=== PATIENT | male | born 1965 | race Caucasian/White ===

== ENCOUNTER → 2022-01-28 | Outpatient (CLI) | payer BC, MEDICAID ==
[~2022-01-28] VITALS: Ht 175.3 cm; Wt 66.5 kg
[~2022-01-28] MED LIST: CLOR15TA PO; CPH500CIP PO; CYAN-23 PO; CYAN100021 PO; MULT-1019 PO; MULT-1136 PO; OMEG100032 PO; OMG1KC PO; SERT50TA PO
== END | disposition home or self-care (01) ==
LOC: PREOP 06:21
PROVIDERS: ATTEND Internal Medicine
DX: Z01.818 Encounter for other preprocedural examination (principal)

== ENCOUNTER 2022-01-30 07:30 | Day surgery (SDC) | payer BC, MEDICAID ==
--- NOTE | 2022-01-28 08:08 | HISTORY AND PHYSICAL ---
DATE OF SERVICE: COLONOSCOPY HISTORY AND PHYSICAL DATE OF ADMISSION: 01/30/2022 HISTORY OF PRESENT ILLNESS: The patient is a 56-year-old white male seen for followup of severe osteoarthritis of the right hip for which he underwent total hip replacement in August of this year as well as a past history of depression and alcohol use disorder with generalized anxiety. He has been feeling well, very pleased with the results of his hip replacement. Leg lengths are equal again. His back pain has resolved. It has been over 9 years since his last drink. His mood has been good. He voiced no complaints. PHYSICAL EXAMINATION: GENERAL: Reveals a white male, appeared to be in no acute distress. VITAL SIGNS: Weight 146.4 pounds, blood pressure 118/82. CHEST: Clear. CARDIOVASCULAR: Reveals a regular rate and rhythm without murmur, S3 or S4. ABDOMEN: Soft, supple without mass, organomegaly or tenderness. EXTREMITIES: Gait is normal. ASSESSMENT AND PLAN: 1. Status post right total hip replacement, doing well, asymptomatic with resolution of back pain. We will see him back in 6 months with a screening chemistry panel, lipid panel, and PSA. 2. Discussed rationale for screening colonoscopy, which will be set up for next Wednesday. Prep instructions with [employer] were given and questions were answered. He is deemed to be of average risk as he is not aware of any family history for colon cancer or polyps. Job ID: [id number] DocumentID: [id number] Dictated Date: 01/22/2022 15:11:09 Budget Controller Date: 01/22/2022 15:31:34 Dictated By: KENDAL MCCULLOUGH MD
[~2022-01-30] VITALS: Ht 175.3 cm; Wt 66.5 kg
[~2022-01-30 07:30] MED LIST changes: +LACTATED RINGERS 1,000 ML IV STA
[2022-01-30 07:42] VITALS: BP 119/81
--- NOTE | 2022-01-30 07:45 | Pre-Op Note & Conscious Sedat ---
Pre-Operative Progress Note Date H&P Reviewed: Jan 30, 2022 Time H&P Reviewed: 07:45 History & Physical: H&P Reviewed, Patient Examed, No changes noted Pre-Op Diagnosis: screening Conscious Sedation Pre-Proced ASA Score 1 For ASA 3 and 4: Consider anesthesia and medical clearance. Also, for patients with a history of failed moderate sedation consider anesthesia. Airway Lungs Heart ASA score ASA 1: a normal healthy patient ASA 2: a patient with a mild systemic disease (mid diabetes, controlled hypertension, obesity ASA 3: a patient with a severe systemic disease that limits activity (angina, COPD, prior Myocardial infarction) ASA 4: a patient with an incapacitating disease that is a constant threat to life (CHF, renal failure) ASA 5: a moribund patient not expected to survive 24 hrs. (ruptured aneurysm) ASA 6: a declared brain- patient whose organs are being harvested. For emergent operations, add the letter E after the classification Mallampati Classification Grade 2 Sedation Plan Analgesia, Amnesia, Plan communicated to team members, Discussed options with patient/fam, Discussed risks with patient/fam The patient is an appropriate candidate to undergo the planned procedure, sedation, and anesthesia. The patient immediately re-assessed prior to indication. KENDAL MCCULLOUGH MD Jan 30, 2022 07:45
[2022-01-30] MEDS ORDERED: PROPOFOL INJECTION 50 ML IV ONE (08:21)
--- NOTE | 2022-01-30 08:45 | Anesthesia-General Post-Op ---
MAC Patient Condition Mental Status/LOC: Same as Preop Cardiovascular: Satisfactory Nausea/Vomiting: Absent Respiratory: Satisfactory Pain: Controlled Complications: Absent Post Op Complications Complications None Follow Up Care/Instructions Patient Instructions None needed. Anesthesiology Discharge Order Discharge Order Patient is doing well, no complaints, stable vital signs, no apparent adverse anesthesia problems. No complications reported per nursing. VICKIE HUNT CRNA Jan 30, 2022 08:45
[2022-01-30 08:50] VITALS: BP 103/65
--- NOTE | 2022-01-30 08:50 | Progress Note-Post Operative ---
Post-Procedure Note Physician (s)/Mid Level Game Designer (s) Physician KENDAL MCCULLOUGH MD Pre-Procedure Diagnosis Pre-Procedure Diagnosis: screening Post-Procedure Diagnosis Post-operative diagnosis: normal colonoscopy KENDAL MCCULLOUGH MD Jan 30, 2022 08:50
[2022-01-30 08:55] VITALS: BP 101/64
[2022-01-30 09:00] VITALS: BP 105/68
[2022-01-30 09:25] VITALS: BP 105/68
--- NOTE | 2022-01-30 13:42 | OPERATIVE REPORT ---
DATE OF SERVICE: COLONOSCOPY SUMMARY INDICATION FOR THE PROCEDURE: Screening. I am his primary care physician. DESCRIPTION OF PROCEDURE: Prior to undergoing colonoscopy, digital rectal evaluation was performed. Anal sphincter tone was normal, and the perianal reflex was intact. Prostate is mildly enlarged and anodular on digital inspection. No other abnormalities were noted on digital inspection of anal canal or distal rectal vault. The colonoscope was then inserted into the rectum and under direct visualization advanced to cecum. The cecum was identified by identification of ileocecal valve and cecal strap. Photographic documentation was obtained. Careful inspection was made as colonoscope withdrawn. Quality of prep was good. FINDINGS: There was no evidence for internal or external hemorrhoids. The rectum, sigmoid colon, descending colon, splenic flexure, transverse colon, hepatic flexure, ascending colon, and cecum were unremarkable. No evidence for neoplasia or diverticular disease noted. ASSESSMENT: Normal colonoscopy to the cecum. Advocate consideration for repeat screening colonoscopy in 10 years. Job ID: [id number] DocumentID: [id number] Dictated Date: 01/30/2022 08:48:13 Wood Milling Machine Tender Date: 01/30/2022 13:41:28 Dictated By: KENDAL MCCULLOUGH MD
== END 2022-01-30 10:00 | disposition home or self-care (01) ==
LOC: ENDO 07:30
PROVIDERS: ATTEND Internal Medicine
DX: Z12.11 Encounter for screening for malignant neoplasm of colon (principal); N40.0 Benign prostatic hyperplasia without lower urinary tract symptoms; Z96.641 Presence of right artificial hip joint; Z87.891 Personal history of nicotine dependence; Z88.0 Allergy status to penicillin